=== PATIENT | male | born 1970 | race African-American/Black ===

== ENCOUNTER 2018-08-12 14:40 | Emergency (ER) | payer SELFPAY ==
--- NOTE | 2018-08-12 15:15 | EDM.PDOC ---
ED HPI GENERAL MEDICAL PROBLEM - General Chief Complaint: General Stated Complaint: dizziness, hypertension Time Seen by Provider: 08/12/18 14:50 Source of Information: Reports: Patient History Limitations: Reports: No Limitations - History of Present Illness INITIAL COMMENTS - FREE TEXT/NARRATIVE: Patient is a 48-year-old gentleman who is seen with chief complaint of blurred vision muscle tightness and aches on the right as aspect of the neck patient states that this morning he was unable to drive because of blurred vision he complains of blurred vision at this time I exam revealed both eyes 20/15 right eye was 20/15 left eye 20/20. Onset: Today Duration: Hour(s): Location: Reports: Neck (Right side spasm) Quality: Reports: Ache Severity: Mild Improves with: Reports: None Worsens with: Reports: None Context: Reports: Activity Associated Symptoms: Reports: No Other Symptoms Right Shoulder Pain Score (Numeric/FACES): 8 - Related Data Allergies Allergy/AdvReac Type Severity Reaction Status Date / Time No Known Drug Allergies Allergy Cannot Verified 08/12/18 14:47 Remember Home Meds: Home Meds Naproxen Sodium [Aleve] 220 mg PO BID PRN 08/12/18 [History] Non-Formulary Medication [NF Drug] 1 applic TOP ASDIRECTED 08/12/18 [History] Past Medical History HEENT History: Reports: None Gastrointestinal History: Reports: GERD Musculoskeletal History: Reports: Gout - Infectious Disease History Infectious Disease History: Reports: C-Difficile - Past Surgical History HEENT Surgical History: Reports: None GI Surgical History: Reports: None Musculoskeletal Surgical History: Reports: None Social & Family History - Caffeine Use Caffeine Use: Reports: Tea Other Caffeine Use: green tea ED ROS GENERAL - Review of Systems Review Of Systems: See Below Constitutional: Reports: No Symptoms HEENT: Reports: No Symptoms Respiratory: Reports: No Symptoms Cardiovascular: Reports: Blood Pressure Problem Endocrine: Reports: No Symptoms GI/Abdominal: Reports: No Symptoms : Reports: No Symptoms Musculoskeletal: Reports: No Symptoms Skin: Reports: No Symptoms Neurological: Reports: No Symptoms Psychiatric: Reports: No Symptoms Hematologic/Lymphatic: Reports: No Symptoms Immunologic: Reports: No Symptoms ED EXAM, GENERAL - Physical Exam Exam: See Below Exam Limited By: No Limitations General Appearance: Alert, WD/WN, No Apparent Distress Eye Exam: Right Eye: Vision Changes (Patient states woke up with blurred vision today patient is 20/15 on both eyes 20/15 on the right eye and 20/20 on the left eye), Bilateral Eye: Abnormal EOM, PERRL Ears: Normal External Exam, Normal Canal, Hearing Grossly Normal, Normal TMs Nose: Normal Inspection, Normal Mucosa, No Blood Throat/Mouth: Normal Inspection, Normal Lips, Normal Teeth, Normal Gums, Normal Oropharynx, Normal Voice, No Airway Compromise Head: Atraumatic, Normocephalic Neck: Limited Range of Motion. No: Other (right paravertebral muscles) Respiratory/Chest: No Respiratory Distress, Lungs Clear, Normal Breath Sounds, No Accessory Muscle Use, Chest Non-Tender GI/Abdominal: Normal Bowel Sounds, Soft, Non-Tender, No Organomegaly, No Distention, No Abnormal Bruit, No Mass (Male) Exam: No Hernia, Normal Inspection, Normal Prostate, Circumcised Rectal (Males) Exam: Normal Exam, Normal Rectal Tone, Prostate Normal Back Exam: Normal Inspection, Full Range of Motion, NT Extremities: Normal Inspection, Normal Range of Motion, Non-Tender, Normal Capillary Refill, No Pedal Edema Neurological: Alert, Oriented, CN II-XII Intact, Normal Cognition, Normal Gait, Normal Reflexes, No Motor/Sensory Deficits Psychiatric: Normal Affect, Normal Mood Skin Exam: Warm, Dry, Intact, Normal Color, No Rash Course - Vital Signs Last Recorded V/S: Last Vital Signs Temp 98.3 F 08/12/18 14:42 Pulse 71 08/12/18 14:42 Resp 18 08/12/18 14:42 BP 138/97 H 08/12/18 14:42 Pulse Ox 99 08/12/18 14:42 Departure - Departure Time of Disposition: 15:22 Disposition: Home, Self-Care 01 Condition: Fair Clinical Impression: Vertigo, Muscle spasm - Discharge Information *PRESCRIPTION DRUG MONITORING PROGRAM REVIEWED*: No *COPY OF PRESCRIPTION DRUG MONITORING REPORT IN PATIENT SALBADOR: No Care Plan Goals: Patient referred to Dr. Wagner for vision exam also will undergo treatment for muscle spasm patient placed on Flexeril 10 mg 3 times a day I did explain the side effects of the muscle relaxant
[2018-08-12] MEDS ORDERED: Lisinopril 5 MG Tab PO ONE (15:42)
[2018-08-12 15:43] LABS: CHLORIDE,CL 105 mmol/L (98-107); SODIUM,NA 141 mmol/L (136-145)
== END 2018-08-12 16:10 | disposition home or self-care (01) ==
LOC: LL.ED 14:40
DX: R42 Dizziness and giddiness (principal); M62.838 Other muscle spasm
CPT/HCPCS: 36415; 80048; 85025; 99284; A9270